=== PATIENT | male | born 1970 | race Caucasian/White ===

== ENCOUNTER 2019-03-01 17:54 | Emergency (ER) | payer OTHER, MEDICAID, SELFPAY ==
[2019-03-01 18:02] VITALS: BP 143/85; PULSE 62; RESP 18; TEMP 37.4; O2SAT 99; BMI 25.7
--- NOTE | 2019-03-01 18:28 | ED.NEUROSD ---
HPI - Neuro Symptoms/Deficit General Chief Complaint: Neuro Symptoms/Deficit Stated Complaint: Decompression Sickness Time Seen by Provider: 03/01/19 18:25 Source: patient and family Mode of arrival: ambulatory Limitations: no limitations History of Present Illness HPI Narrative: 48-year-old male nonsmoker with noncontributory medical history presents with neurologic symptoms after multiple dives over past 3 days. Patient's chief complaint currently are of numbness and tingling of bilateral lower extremities below the waist, he had 1 episode where he lost control of his bladder. 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 He is performed 16 dives over the past 3 days including 2 today. Both dives todaywere to a max depth of 67 ft with an average of 50 ft and were about 60 minutes apiece. He very meticulously followed ascent raise and states he had about a 1 hour break in between dives. With patient started developing numbness and tingling of bilateral upper extremities immediately upon leaving the water after his 2nd dive at 1:00 p.m. drank a bit a water and thought he may be dehydrated but had time left on his dive computer so descended to a level of 40 ft and had no improvement of his symptoms he then came back to the surface, again at a safe rate. His diet are on compressed air only. He denies any headache or blurred vision nor of trouble with speech. His upper extremity numbness and tingling lasted about 15 minutes however bilateral lower extremity symptoms persist. He is having difficulty with ambulation. He has no chest pain, cough or shortness of breath. He has no extremity or joint pain. He has no rash. He was briefly dizzy but no longer is. Onset (ago): hour(s) Location: left arm, right arm, left leg, right leg and ataxia History of same: No Severity: moderate Quality: weak and numb Relieving factors: none Exacerbating factors: none Context: gradual onset On Anticoagulants: No Treatments Prior to Arrival: none Related Data Allergies Allergy/AdvReac Type Severity Reaction Status Date / Time Penicillins Allergy diarrrhea Verified 03/01/19 18:15 Review of Systems Constitutional Constitutional: Denies chills, Denies fatigue, Denies fever(s), Denies frequent falls, Denies lethargy and Denies weakness Eyes Eyes: Denies change in vision, Denies eye discharge, Denies irritation and Denies loss of vision ENT Ears, Nose, Mouth, and Throat: Denies change in voice, Denies dizziness, Denies neck pain, Denies sore throat and Denies throat swelling Cardiovascular Cardiovascular: Denies chest pain, Denies irregular heart rhythm, Denies lightheadedness, Denies palpitations, Denies dyspnea, Denies dyspnea on exertion and Denies orthopnea Respiratory Respiratory: Denies cough, Denies dyspnea, Denies dyspnea on exertion and Denies wheezing Gastrointestinal Gastrointestinal: Denies abdominal pain, Denies change in bowel habits, Denies diarrhea, Denies nausea and Denies vomiting Genitourinary Genitourinary: Denies hematuria, Denies flank pain, Denies urinary incontinence and Denies urinary urgency Musculoskeletal Musculoskeletal: Denies back pain, Denies muscle weakness, Denies neck pain, Reports numbness and Reports tingling Integumentary/Breasts Skin/Breast: Denies pruritus, Denies erythema, Denies rash and Denies wounds Neurologic Neurologic: Denies behavioral changes, Denies confusion, Denies dizziness, Denies frequent falls, Denies loss of vision, Reports numbness, Reports tingling and Denies weakness Psychiatric Psychiatric: Denies anxiety, Denies behavioral changes, Denies confusion, Denies depression, Denies homicidal ideation and Denies suicidal ideation Endocrine Endocrine: Denies fatigue, Denies flushing and Denies palpitations Hematologic/Lymphatic Hematologic/Lymphatic: Denies easy bruising Allergic/Immunologic Allergic/Immunologic: Denies urticaria, Denies throat swelling and Denies wheezing [facility] Social History Smoking Status: Former smoker Social History Smoking Status: Former smoker Exam Narrative Exam Narrative: GENERAL: [48] year old patient appears stated age. Well-nourished, well-developed patient, in mild distress. HEAD: Atraumatic. Normocephalic. EYES: Pupils equal round and reactive. Extraocular motions intact. No scleral icterus. No injection or drainage. ENT: Nose without bleeding, purulent drainage. Throat without erythema, tonsillar hypertrophy or exudate. Airway patent. NECK: Trachea midline. Non tender CARDIOVASCULAR: Regular rate and rhythm without murmurs, gallops, or rubs. RESPIRATORY: Clear to auscultation. Breath sounds equal bilaterally. No wheezes, rales, or rhonchi. GASTROINTESTINAL: Abdomen soft, non-tender, nondistended. EXTREMITIES: No edema or joint tenderness. BACK: Nontender without deformity or crepitance. No flank tenderness. NEURO: AOx3. Sensation, strength and coordination intact above the waist. Patient has decreased sensation to both soft and pinprick below the waist. Rectal tone intact. Patient has 4/5 strength in the right lower extremity and 3/5 strength in the left lower extremity with associated ataxia. Patient has decreased reflexes in left lower extremity at the patellar reflex SKIN: No rash or erythema of visible areas Initial Vital Signs Initial Vital Signs: Vital Signs Temperature 99.4 F 03/01/19 18:02 Pulse Rate 62 03/01/19 18:02 Respiratory Rate 18 03/01/19 18:02 Blood Pressure 143/85 H 03/01/19 18:02 Pulse Oximetry 99 03/01/19 18:02 Course Orders Ordered: ED Orders 03/01/19 18:27 EKG-12 Lead Stat 03/01/19 18:34 XR chest 1V Stat 03/01/19 18:42 Basic Metabolic Panel Stat Complete Blood Count AUTO DIFF Stat Lactate (Lactic Acid) Stat Magnesium Stat Partial Thromboplastin Time Stat Reevaluation(s) Reevaluation #1: no improvement on NRB Time: 19:10 Consultations Consultation #1: call to [facility], they request transfer down to ED. Discussed with ED, happy to accept. Finally, call placed to hospitalist in the event patient gets admitted in the aftermath Time: 19:10 Vital Signs Vital signs: Vital Signs - 8 hr 03/01/19 18:02 03/01/19 18:38 03/01/19 18:49 Temperature 99.4 F Pulse Rate 62 73 61 Respiratory Rate 18 11 L 18 Blood Pressure 143/85 H Blood Pressure [Left Arm] 170/89 H 170/89 H Pulse Oximetry 99 100 100 MDM - Neuro Symptoms/Deficit Lab Data Result diagrams: 03/01/19 18:42 03/01/19 18:42 Labs: Lab Results 03/01/19 03/01/19 03/01/19 Range/Units 18:42 18:42 18:42 WBC 6.4 (4.5-11.0) X10^3/uL RBC 4.46 L (4.5-5.9) X10^6/uL Hgb 14.8 (13.5-17.5) g/dL Hct 41.8 (41-53) % MCV 93.7 (80-100) fL MCH 33.1 (26-34) PG MCHC 35.3 (30-36) % RDW 12.8 (11.6-14.8) % Plt Count 290 (150-400) X10^3/uL Neut % (Auto) 59.5 (50-75) % Lymph % (Auto) 31.5 (25-40) % Churchill % (Auto) 7.1 (3-14) % Eos % (Auto) 1.3 L (2-4) % Baso % (Auto) 0.6 (0-2) % Neut # (Auto) 3800 (3841-3703) /uL Lymph # (Auto) 2000 (8483-1840) /uL Churchill # (Auto) 500 (0-900) /uL Eos # (Auto) 100 (0-450) /uL Baso # (Auto) 0 (0-100) /uL APTT 30 (26.4-36.2) SECONDS Sodium 140 (137-145) mmol/L Potassium 3.7 (3.4-5.1) mmol/L Chloride 103 (98-107) mmol/L Carbon Dioxide 26 (22-32) mmol/L BUN 16 (9-20) mg/dL Creatinine 0.80 (0.66-1.25) mg/dL Estimated GFR > 60.0 (>60) mL/min BUN/Creatinine Ratio 20.0 (6-22) Glucose 96 (70-100) mg/dL Lactate (0.7-2.1) mmol/L Calcium 9.9 (8.4-10.2) mg/dL Magnesium 2.0 (1.6-2.3) mg/dL 03/01/19 Range/Units 18:42 WBC (4.5-11.0) X10^3/uL RBC (4.5-5.9) X10^6/uL Hgb (13.5-17.5) g/dL Hct (41-53) % MCV (80-100) fL MCH (26-34) PG MCHC (30-36) % RDW (11.6-14.8) % Plt Count (150-400) X10^3/uL Neut % (Auto) (50-75) % Lymph % (Auto) (25-40) % Churchill % (Auto) (3-14) % Eos % (Auto) (2-4) % Baso % (Auto) (0-2) % Neut # (Auto) (7799-6759) /uL Lymph # (Auto) (4458-2607) /uL Churchill # (Auto) (0-900) /uL Eos # (Auto) (0-450) /uL Baso # (Auto) (0-100) /uL APTT (26.4-36.2) SECONDS Sodium (137-145) mmol/L Potassium (3.4-5.1) mmol/L Chloride (98-107) mmol/L Carbon Dioxide (22-32) mmol/L BUN (9-20) mg/dL Creatinine (0.66-1.25) mg/dL Estimated GFR (>60) mL/min BUN/Creatinine Ratio (6-22) Glucose (70-100) mg/dL Lactate 1.8 (0.7-2.1) mmol/L Calcium (8.4-10.2) mg/dL Magnesium (1.6-2.3) mg/dL Urine Dip Bedside Urine Glucose Negative Bedside Urine Bilirubin - Negative Bedside Urine Ketone - Negative Urine Specific [place] 1.010 Bedside Urine Occult Blood - Negative Bedside Urine pH 7.0 Bedside Urine Protein - Negative Bedside Urine Urobilinogen - Negative Bedside Urine Nitrite - Negative Bedside Urine Leukocytes - Negative Esterase Imaging Data Chest x-ray: Attestation: I personally reviewed and interpreted this imaging study as follows: My impression: NAP Critical Care Time Critical Care Time Critical Care Time: Yes Total Critical Care Time: 30 Attestation: The high probability of a clinically significant, sudden or life threatening deterioration of the [NV] system(s) required my full and direct attention, intervention and personal management. The aggregate critical care time was [30] minutes. This time is in addition to time spent performing reported procedures but includes the following: [x] Data Review and interpretation [x] Patient assessment and monitoring of vital signs []x Documentation [x] Medication orders and management Discharge Plan Departure Patient Disposition: [facility] Clinical Impression: Decompression sickness Qualifiers: Encounter type: initial encounter Qualified Code(s): T70.3XXA - Caisson disease [decompression sickness], initial encounter Discharge Date/Time: 03/01/19 20:25
--- NOTE | 2019-03-01 18:34 | DI.RAD.S_ITS ---
PROCEDURE: XR CHEST 1V INDICATIONS: dive sickness TECHNIQUE: One view of the chest was acquired. COMPARISON: None. FINDINGS: Surgical changes and devices: None. Lungs and pleura: Lungs are clear. No pleural effusions or pneumothorax. Mediastinum: Mediastinal contours appear normal. Heart size is normal. Bones and chest wall: No suspicious bony lesions. Overlying soft tissues appear unremarkable. IMPRESSION: No acute disease Dictated by: Hubert Rosas M.D. on 03/01/2019 at 19:54 Approved by: Hubert Rosas M.D. on 03/01/2019 at 19:55
--- NOTE | 2019-03-01 18:37 | PC.NURSE ---
pt to room. oygen 2l nc placed on patient. ekg done. Md aware of patient and CO level
[2019-03-01 18:38] VITALS: BP 170/89; PULSE 73; RESP 11; O2SAT 100
[2019-03-01 18:49] VITALS: BP 170/89; PULSE 61; RESP 18; O2SAT 100
--- NOTE | 2019-03-01 18:50 | PC.NURSE ---
pt placed on non rebreather per MD request
[2019-03-01 18:56] LABS: Add Manual Diff / Slide Review NO; Basophils Absolute Auto 0 /uL (0-100); Basophils Percent Auto 0.6 % (0-2); Eosinophils Absolute Auto 100 /uL (0-450); Eosinophils Percent Auto 1.3 % (2-4); Hematocrit 41.8 % (41-53); Hemoglobin 14.8 g/dL (13.5-17.5); Lymphocytes Absolute Auto 2000 /uL (1100-4500); Lymphocytes Percent Auto 31.5 % (25-40); Mean Corpuscular HGB Conc 35.3 % (30-36); Mean Corpuscular Hemoglobin 33.1 PG (26-34); Mean Corpuscular Volume 93.7 fL (80-100); Monocytes Absolute Auto 500 /uL (0-900); Monocytes Percent Auto 7.1 % (3-14); Neutrophils Absolute Auto 3800 /uL (1500-7000); Neutrophils Percent Auto 59.5 % (50-75); Platelet Count 290 X10^3/uL (150-400); Red Blood Cell Count 4.46 X10^6/uL (4.5-5.9); Red Cell Distribution Width 12.8 % (11.6-14.8); White Blood Cell Count 6.4 X10^3/uL (4.5-11.0)
[2019-03-01 19:05] LABS: Lactate (Lactic Acid) 1.8 mmol/L (0.7-2.1)
[2019-03-01 19:06] LABS: Blood Urea Nitrogen 16 mg/dL (9-20); Calcium 9.9 mg/dL (8.4-10.2); Carbon Dioxide 26 mmol/L (22-32); Chloride 103 mmol/L (98-107); Estimated Glomerular Filt Rate > 60.0 mL/min (>60); Glucose 96 mg/dL (70-100); HEMOLYSIS < 15 (0-50); Potassium 3.7 mmol/L (3.4-5.1); Sodium 140 mmol/L (137-145)
[2019-03-01 19:13] LABS: PTT Partial Thromboplastin Tim 30 SECONDS (26.4-36.2)
[2019-03-01 21:02] VITALS: BP 153/86; PULSE 67; RESP 18; O2SAT 100
== END 2019-03-01 20:25 | disposition short-term general hospital (02) ==
PROVIDERS: Emergency Provider Emergency Medicine
DX: T70.3XXA Caisson disease [decompression sickness], initial encounter (principal)
CPT/HCPCS: 36591; 71045; 80048; 81003; 83605; 83735; 85025; 85730; 93005; 99283; 99285

== ENCOUNTER → 2022-03-22 12:16 | Outpatient (CLI) | payer MEDICARE, MEDICAID, SELFPAY ==
--- NOTE | 2022-03-22 12:19 | DI.MRI.S_ITS ---
PROCEDURE: MR THORACIC SPINE WO CON INDICATIONS: Spinal stenosis, thoracic region, lumbar region TECHNIQUE: Noncontrast sagittal T1 spine echo and T2 fast spin echo, sagittal STIR, and T2 fast spin echo through the thoracic spine. COMPARISON: [facility], , MR LUMBAR SPINE WO CON, 03/22/2022, 13:15. FINDINGS: Image quality: Excellent. Alignment and Curvature: Accentuated thoracic kyphosis is seen. No focal AP alignment abnormality is seen. Bone Marrow: Marrow is of normal overall signal. Scattered foci are seen, which are hyperintense on T1-weighted and T2-weighted imaging, which are most consistent with benign vertebral body hemangiomas. No acute vertebral body compression fractures. Spinal Cord: Visualized spinal cord is normal in size and signal. Paraspinous Soft Tissues: No paravertebral masses. Miscellaneous: This patient has 12 pairs of ribs. The 12 pair of ribs is vestigial. At the T7-T8 level, there is a mild central disc protrusion, as on series 10, image 10 and on series 6 image 8. Mild central canal narrowing is seen, with minimal mass effect upon the ventral spinal cord. No significant neural foraminal narrowing can be seen. Milder degenerative changes are seen elsewhere. IMPRESSION: Focal T7-T8 central disc protrusion. Dictated by: Heriberto Saucedo M.D. on 03/22/2022 at 15:17 Approved by: Heriberto Saucedo M.D. on 03/22/2022 at 15:19
--- NOTE | 2022-03-22 12:19 | DI.MRI.S_ITS ---
PROCEDURE: MR LUMBAR SPINE WO CON INDICATIONS: Spinal stenosis, thoracic region, lumbar region TECHNIQUE: Noncontrast sagittal T1 spin echo and T2 fast echo, sagittal STIR, and T2 fast spin echo through the lumbar spine. In cases with scoliosis, additional coronal T2 fast spin echo may be performed. COMPARISON: [facility], MR, MR THORACIC SPINE WO CON, 03/22/2022, 13:15. FINDINGS: Image quality: Excellent. Alignment and Curvature: Mild levoconvex scoliotic curvature is noted. Bone Marrow: Marrow is of normal overall signal. Scattered foci are seen, which are hyperintense on T1-weighted and T2-weighted imaging, which are most consistent with benign vertebral body hemangiomas. No acute vertebral body compression fractures. Spinal Cord: Conus medullaris terminates at the L1 level. Visualized cord demonstrates normal signal and size. Paraspinous Soft Tissues: No paravertebral masses. This patient has transitional lumbar anatomy. For the purposes of this examination, the level with the vestigial ribs is considered to be T12. By this numbering scheme, the L5 level is transitional and is relatively highly sacralized. The L5-S1 disc level is transitional. T12-L1: Normal appearance. L1-L2: No significant abnormality is seen. L2-L3: Mild loss of disc height is seen. Loss of disc signal is seen. Moderate generalized disc bulge is seen. There is a superimposed central disc protrusion. Mild facet joint hypertrophy is seen. There is at least moderate right-sided and moderate left-sided neural foraminal narrowing. Moderate central canal narrowing is seen. L3-L4: The disc height is well-preserved. Loss of disc signal is seen at this level. At least moderate disc bulge is seen, which is eccentric to the right. Mild to moderate facet hypertrophy is seen, right worse than left. There is moderate left-sided and at least moderate right-sided neural foraminal narrowing. There is a mild degree of compression seen upon the exiting right L3 nerve root. Moderate central canal narrowing is seen. L4-L5: Mild loss of disc height is seen. Loss of disc signal is seen. Reactive marrow endplate changes are seen which are hypointense on T1-weighted imaging and hyperintense on T2 weighted imaging, which is most consistent with edema (Modic type I changes). At least moderate disc bulge is seen, which is eccentric to the left. There is a superimposed central disc protrusion. There is moderate to severe left-sided neural foraminal narrowing, with a degree compression upon the exiting left L4 nerve root. At least moderate right-sided neural foraminal narrowing is seen. Mild central canal narrowing is seen. L5-S1: There is a transitional, rudimentary disc seen. No significant neural foraminal or central canal narrowing can be seen. IMPRESSION: Multiple levels of lumbar spine degenerative change are seen, which are worst at the L4-L5 level. This patient has transitional lumbar anatomy, with a highly sacralized L5 level. Mild levoconvex scoliotic curvature is noted. Dictated by: Heriberto Saucedo M.D. on 03/22/2022 at 15:12 Approved by: Heriberto Saucedo M.D. on 03/22/2022 at 15:16
== END ==
PROVIDERS: PCP Physician Assistant Medical; Referring Provider Physical Medicine & Rehabilitation; Visit Provider Physical Medicine & Rehabilitation
DX: M48.061 Spinal stenosis, lumbar region without neurogenic claudication (principal); M48.04 Spinal stenosis, thoracic region; M47.816 Spondylosis without myelopathy or radiculopathy, lumbar region; M41.86 Other forms of scoliosis, lumbar region
CPT/HCPCS: 72146; 72148

== ENCOUNTER → 2024-07-24 12:08 | Outpatient (CLI) | payer MEDICARE, OTHER, SELFPAY ==
--- NOTE | 2024-07-24 12:13 | DI.RAD.S_ITS ---
PROCEDURE: XR LUMBAR SPINE MIN 4V INDICATIONS: BACK PAIN TECHNIQUE: 5 views of the lumbar spine were acquired, including bilateral oblique views. COMPARISON: None. FINDINGS: Bones: 5 nonrib-bearing vertebrae are present. There is mild leftward curvature of lumbar spine with apex at L3 level.. Moderate degenerative endplate changes and loss of disc height throughout lumbar spine is seen more notably at L3-4 through L5-S1 levels. No vertebral body compression fractures. No suspicious bony lesions. Soft tissues: Overlying bowel gas pattern is normal. No suspicious soft tissue calcifications. Oblique images: No pars defects. Bilateral bony foraminal stenosis are noted at L4-5 and L5-S1 levels. IMPRESSION: 1. [id number] degenerative disc disease throughout lumbar spine. No acute vertebral body compression fracture. Mild leftward curvature centered at L3 level. 2. No pars defects. Bilateral bony foraminal stenosis are noted at L4-5 and L5-S1 levels on oblique views. Dictated by: Damian Hickey M.D. on 07/24/2024 at 12:47 Approved by: Damian Hickey M.D. on 07/24/2024 at 12:48
--- NOTE | 2024-07-24 12:13 | DI.RAD.S_ITS ---
PROCEDURE: XR THORACIC SPINE 3V INDICATIONS: RIB PAIN TECHNIQUE: 3 views of the thoracic spine were acquired. COMPARISON: None. FINDINGS: Bones: Mild rightward curvature of thoracolumbar spine with apex at T9-10 level is seen. No fractures or dislocations. No suspicious bony lesions. Mild degenerative endplate changes are noted in mid to lower thoracic spine. 12 pairs of ribs are noted, and appear intact where visualized. Soft tissues: No paravertebral stripe thickening. IMPRESSION: No acute vertebral body compression fractures. Very mild rightward curvature of thoracolumbar spine as above. Mild degenerative disc disease in mid to lower thoracic spine. Dictated by: Damian Hickey M.D. on 07/24/2024 at 12:45 Approved by: Damian Hickey M.D. on 07/24/2024 at 12:47
== END ==
PROVIDERS: PCP Physician Assistant; Referring Provider Physical Medicine & Rehabilitation; Visit Provider Physical Medicine & Rehabilitation
DX: R07.81 Pleurodynia (principal); M51.34 Other intervertebral disc degeneration, thoracic region; M51.16 Intervertebral disc disorders with radiculopathy, lumbar region; M51.17 Intervertebral disc disorders with radiculopathy, lumbosacral region; M48.061 Spinal stenosis, lumbar region without neurogenic claudication; M48.07 Spinal stenosis, lumbosacral region; M47.812 Spondylosis without myelopathy or radiculopathy, cervical region; R25.2 Cramp and spasm; M54.9 Dorsalgia, unspecified
CPT/HCPCS: 72072; 72110; 99214

== ENCOUNTER → 2024-09-12 10:14 | Outpatient (CLI) | payer MEDICARE, MEDICAID, SELFPAY | PROVIDERS: Family Provider Physician Assistant; PCP Physician Assistant; Referring Provider Physical Medicine & Rehabilitation; Visit Provider Physical Medicine & Rehabilitation | DX: M51.26 Other intervertebral disc displacement, lumbar region (principal); M51.24 Other intervertebral disc displacement, thoracic region; M47.812 Spondylosis without myelopathy or radiculopathy, cervical region | CPT/HCPCS: 95886; 95911 ==